=== PATIENT | female | born 1975 | race African-American/Black ===

== ENCOUNTER 2019-06-25 10:14 | Emergency (ER) | payer OTHER ==
[~2019-06-25] VITALS: Ht 157.5 cm; Wt 74.8 kg
[2019-06-25] MEDS ORDERED: IBUPROFEN 600600 M1 PO (12:03)
[2019-06-25] MEDS ORDERED: NORFLEX100 MG PO (12:03)
[2019-06-25] MEDS ORDERED: NORCO 5-325 TA1 EAC1 PO (12:03)
[2019-06-25] MEDS ORDERED: SENNA-DOCUSATE1 EAC1 PO (12:03)
[2019-06-25 12:41] VITALS: BP 191/135
== END 2019-06-25 12:42 | disposition home or self-care (01) ==
LOC: ER 10:14
DX: S70.02XA Contusion of left hip, initial encounter (principal); S60.212A Contusion of left wrist, initial encounter; S20.212A Contusion of left front wall of thorax, initial encounter; S30.1XXA Contusion of abdominal wall, initial encounter; I10 Essential (primary) hypertension; E11.9 Type 2 diabetes mellitus without complications; V89.2XXA Person injured in unspecified motor-vehicle accident, traffic, initial encounter; Y92.89 Other specified places as the place of occurrence of the external cause; Y93.89 Activity, other specified; Y99.8 Other external cause status